=== PATIENT | female | born 1985 | race Caucasian/White ===

== ENCOUNTER 2018-02-17 12:46 | Emergency (ER) | payer SELFPAY ==
[~2018-02-17] VITALS: Ht 154.9 cm; Wt 90.7 kg
[2018-02-17 12:53] VITALS: Ht 154.9 cm; Wt 90.7 kg
[2018-02-17 13:47] VITALS: BP 119/64
== END 2018-02-17 14:34 | disposition home or self-care (01) ==
LOC: ED 12:46
DX: J45.901 Unspecified asthma with (acute) exacerbation (principal); F17.210 Nicotine dependence, cigarettes, uncomplicated; Z98.51 Tubal ligation status
CPT/HCPCS: 99406; J2930; J7613; J7644